=== PATIENT | male | born 1985 | race African-American/Black ===

== ENCOUNTER 2016-05-26 06:43 | Day surgery (SDC) | payer OTHER ==
[2016-05-21 14:29] VITALS: BMI 36.9
[2016-05-26] MEDS ORDERED: PROPOFOL 20 ML ONE ×2 (07:21)
[2016-05-26] MEDS ORDERED: MIDAZOLAM HCL 2 MG/2 ML SINGLE DOSE VIAL ONE (07:41)
[2016-05-26] MEDS ORDERED: SUCCINYLCHOLINE CHLORIDE 200 MG/10 ML VIAL ONE (07:42)
[2016-05-26] MEDS ORDERED: BUPIVACAINE HCL 0.25% 125 MG/50 ML VIAL ONE (08:04)
[2016-05-26] MEDS ORDERED: ONDANSETRON 4 MG/2 ML VIAL ONE ×2 (09:01→09:50)
[2016-05-26] MEDS ORDERED: DEXAMETHASONE SOD PHOSPHATE 4 MG/1 ML VIAL ONE ×2 (09:01→09:50)
[2016-05-26] MEDS ORDERED: KETOROLAC TROMETHAMINE 30 MG/1 ML VIAL ONE (09:01)
[2016-05-26] MEDS ORDERED: ceFAZolin SODIUM 1 GM VIAL ONE (09:01)
[2016-05-26] MEDS ORDERED: LIDOCAINE HCL/PF 2% SDV 5ML VIAL ONE (09:02)
[2016-05-26] MEDS ORDERED: BUPIVACAINE HCL/PF 0.25% (2.5MG/ML) 10 ML VIAL IJ ONE ×2 (09:09)
[2016-05-26] MEDS ORDERED: oxyCODONE HCL 5 MG TABLET ONE (10:48)
[2016-05-26] MEDS ORDERED: LACTATED RINGERS SOLUTION 1,000 ML IV SCH (11:00)
[2016-05-26] MEDS ORDERED: ONDANSETRON 4 MG/2 ML VIAL IVPUSH PRN (11:45)
[2016-05-26] MEDS ORDERED: oxyCODONE HCL 5 MG TABLET PO PRN ×2 (11:46)
[2016-05-26 12:33] VITALS: TEMP 98.3
[2016-05-26 13:31] VITALS: PULSE 66
[2016-05-26 13:35] VITALS: BP 136/81
--- NOTE | 2016-05-26 21:47 | OP ---
DATE OF OPERATION: 05/26/2016 PREOPERATIVE DIAGNOSIS: Left index finger mass surrounding radial digital nerve. 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 OPERATIVE PROCEDURE: Excision of left index finger mass with dissection and decompression of radial digital nerve with extensive dissection of the nerve. SURGEON: Bernie Perez MD SKETCHER: HUMA Colby ANESTHESIA: General. COMPLICATIONS: None. ESTIMATED BLOOD LOSS: Minimal. INDICATIONS FOR PROCEDURE: The patient is a 30-year-old male with the above findings, indicated for operative treatment. Risks, benefits, and alternatives were discussed with the patient at length. Proper informed consent was obtained. PROCEDURE: After proper identification of the patient and correct operative site, the patient was brought to the operating room and placed supine on the table. Prominences well-padded. General anesthesia provided by the anesthesiologist and adequate for procedure. Left upper extremity was prepped and draped in the usual sterile fashion. Well-padded tourniquet was placed with sterile prep. Esmarch bandage was used to exsanguinate the left upper extremity. Tourniquet inflated to 250 mmHg. A Monica incision was made over the proximal phalanx. Incision was taken sharply through the skin with blunt and sharp dissection of the subcutaneous tissues. Mass was found to be quite large and it was necessary to extend the incision proximally into the palm and distally over the middle phalanx. At this point, I was able to identify that this tumor was likely a nerve sheath tumor as it was completely surrounding the nerve and emanating from the nerve proximally and ending distally. I then traced the nerve in a proximal distal direction. With careful meticulous dissection, using loupe magnification, the tumor was excised from the radial digital nerve. The nerve was also completely decompressed in this area. After this was done, the nerve was left intact. Some thickening of the nerve remained, but no gross tumor was observed remaining. Mass was sent for pathological evaluation. Total length of the tumor measured approximately 30 mm. The wound was irrigated with copious amounts of normal saline and repaired with a 5-0 fast-absorbing plain gut as well as Dermabond. Sterile dressings were applied. The patient was reversed from anesthesia and brought to the recovery room in stable condition. He tolerated the procedure well. Esvin Vincent, the therapist's assistant, was integral throughout this procedure. This procedure could not have been performed without a skilled operative therapist's assistant. BERNIE PEREZ M.D. BARNEY/[id number]
--- NOTE | 2016-05-28 16:25 | PATH ---
Surgical Pathology Report Patient Name: MICHELLE AVILA [facility]. Rec. #: [id number] /Age/Gender: 1985 (Age: 30) / F Account: [id number] Location: [facility], 1928–1983 AMBULATORY Taken: 05/26/2016 Received: 05/26/2016 Reported: 05/28/2016 Physicians: Michael Garcia M.D. Specimen(s) Received PERINEURAL MASS LEFT INDEX FINGER Clinical History Left index finger mass Final Diagnosis SOFT TISSUE, LEFT INDEX FINGER, EXCISION: NEURAL FIBROLIPOMA/ FIBROLIPOMATOUS HAMARTOMA. NO MALIGNANT FEATURES IDENTIFIED. Electronically Signed Mahendra Zavala M.D. Gross Description Received in formalin, labeled "perineural mass left index finger," is a 4.4 x 2.6 x 1.5 cm macias-yellow, irregular, firm mass. Sectioning reveals macias-yellow, smooth parenchyma. [employer] sections are submitted in 2 cassettes. 05/27/201605/27/2016
== END 2016-05-26 12:15 | disposition home or self-care (01) ==
LOC: FASU 06:43 → EDSEX 09:00 → FASU 12:15
PROVIDERS: ATTEND Orthopaedic Surgery Hand Surgery
PROC: 01N60ZZ Release Radial Nerve, Open Approach (ICD-10-PCS; 2016-05-26)
PROC: 0HBGXZX Excision of Left Hand Skin, External Approach, Diagnostic (ICD-10-PCS; principal; 2016-05-26 08:30)
DX: D17.79 Benign lipomatous neoplasm of other sites (principal)
CPT/HCPCS: 88305-TC; 94760